=== PATIENT | male | born 1950 | race Caucasian/White ===

== ENCOUNTER 2024-06-14 10:24 | Outpatient (AMB) | payer MEDICARE, SELFPAY ==
--- NOTE | 2024-06-14 10:46 | MHC.OFFVIS ---
Vital Signs 06/14/24 10:47 Height 5 ft 11.5 in Weight 150 lb 5.684 oz BMI 20.7 BP 118/68 Blood Pressure Location Lt brachial Position Sitting Pulse 77 Pulse Source Pulse Oximeter Pulse Oximetry (%) 100 Oxygen Delivery Method Room Air Intake Visit Reasons: PMR/pt aware to call [facility] to fax MR Intake Note: Patient presents today for follow up on PMR, he was last seen by Dr. Kapadia on 02/23/2024 in the [facility]. Allergies No Known Allergies Allergy (Verified 06/14/24 10:54) HPI HPI PMR/pt aware to call [facility] to fax MR: Details: Patient has been feeling well since last visit. He denies GCA symptoms. Right shoulder pain started last week, which occur with certain movements when he abducts above 90 degrees. He denies hip pain. Actemra 10/2021-10/2023. He continues to take calcium and vitamin-D. He also takes aspirin 81 mg daily PFSH Medical History (Updated 06/14/24 @ 11:45 by Tavo Kapadia MD) Vaso vagal episode Encounter for colonoscopy following colon polyp removal Surgical History (Updated 06/14/24 @ 11:04 by Tangela Jang CMA) No pertinent past surgical history Family History (Updated 06/14/24 @ 11:04 by Tangela Jang CMA) Mother Colon cancer Social History (Updated 06/14/24 @ 11:03 by Tangela Jang CMA) Alcohol intake: former Year quit: 2019 Patient Tobacco Use Status: Never used Tobacco Review of Systems Const All systems reviewed & are unremarkable except as noted in HPI and below Physical Exam Vital Signs: Last Vital Signs Pulse 77 06/14/24 10:47 BP 118/68 06/14/24 10:47 Pulse Ox 100 06/14/24 10:47 Oxygen Delivery Method Room Air 06/14/24 10:47 BMI result Body Mass Index 20.7 Const Other: General: Comfortable CVS: RRR Respiratory: clear to auscultation bilaterally. Good respiratory effort Skin: No lesions seen MSK: No tenderness of any joints. No synovitis. No subacromial tenderness. Negative painful arc sign. Positive Gilbert Anton test right side. Assessment & Plan Assessment & Plan (1) Giant cell arteritis: Comment: History of presentation of PMR in 2019 with recurrent relapses on long-term prednisone then developed GCA biopsy-proven and was started on Actemra November 11-2023. He is currently doing well without relapse since being off of Actemra. Code(s): M31.6 - Other giant cell arteritis Category: Medical Plan: Labs ordered for disease monitoring. He was on calcium and vitamin-D while on long-term prednisone. We will order levels this visit. If within normal range, can consider discontinuing supplement. Continue aspirin 81 mg daily Return to clinic 3 months (2) PMR (polymyalgia rheumatica): Comment: See above Code(s): M35.3 - Polymyalgia rheumatica Category: Medical Plan: See above (3) Impingement syndrome of right shoulder: Comment: New onset. We discussed conservative management. Code(s): M75.41 - Impingement syndrome of right shoulder Category: Medical Plan: Exercises printed for patient from [facility] shoulder exercise program. If symptoms progress, he will call office for PT evaluation. Orders: Orders Erythrocyte Sedimentation Rate Today M31.6 - Other giant cell arteritis, M75.41 - Impingement syndrome of right shoulder C Reactive Protein Today M31.6 - Other giant cell arteritis, M75.41 - Impingement syndrome of right shoulder Vitamin D 25-OH Total Today M31.6 - Other giant cell arteritis, M75.41 - Impingement syndrome of right shoulder Calcium Today M31.6 - Other giant cell arteritis, M75.41 - Impingement syndrome of right shoulder Albumin Level Today M31.6 - Other giant cell arteritis, M75.41 - Impingement syndrome of right shoulder Coding Level of Care Code Est Pt Level 4 (70447) Complex EM visit Add On G2211 Diagnoses Giant cell arteritis M31.6 PMR (polymyalgia rheumatica) M35.3 Impingement syndrome of right shoulder M75.41
[2024-06-14 10:47] VITALS: BP 118/68; PULSE 77; O2SAT 100; BMI 20.7
== END 2024-06-14 11:41 | disposition home or self-care (01) ==
PROVIDERS: PCP Internal Medicine; Referring Provider Internal Medicine; Visit Provider Internal Medicine Rheumatology
DX: M31.6 Other giant cell arteritis (principal); M35.3 Polymyalgia rheumatica; M75.41 Impingement syndrome of right shoulder
CPT/HCPCS: 99214; G2211

== ENCOUNTER → 2024-06-14 10:24 | Outpatient (BNVA) | payer MEDICARE, SELFPAY | PROVIDERS: PCP Internal Medicine; Visit Provider Internal Medicine Rheumatology | DX: M31.6 Other giant cell arteritis (principal); M35.3 Polymyalgia rheumatica; M75.41 Impingement syndrome of right shoulder | CPT/HCPCS: 99212 ==

== ENCOUNTER 2024-06-19 08:02 | Outpatient (REF) | payer MEDICARE, SELFPAY ==
[2024-06-19 11:22] LABS: Albumin Level 4.3 g/dL (3.5-5.0); C Reactive Protein 0.44 mg/dL (< or = 0.50); Calcium 9.9 mg/dL (8.4-10.2)
[2024-06-19 11:27] LABS: Vitamin D 25-OH Total 34.5 ng/mL (>30)
[2024-06-19 11:36] LABS: Erythrocyte Sedimentation Rate 16 MM/HR (0-15)
== END 2024-06-19 08:03 | disposition home or self-care (01) ==
LOC: HO.10HDL 08:02
PROVIDERS: Visit Provider Internal Medicine Rheumatology
DX: M75.41 Impingement syndrome of right shoulder (principal); M31.6 Other giant cell arteritis
CPT/HCPCS: 36415; 82040; 82306; 82310; 85652; 86140

== ENCOUNTER 2024-10-10 13:52 | Outpatient (AMB) | payer MEDICARE, SELFPAY ==
--- NOTE | 2024-10-10 13:56 | A.OFFVIS_ITS ---
Vital Signs 10/10/24 13:57 Height 5 ft 11.5 in Weight 150 lb 9.211 oz BMI 20.7 BP 120/80 Blood Pressure Location Lt brachial Position Sitting Pulse 83 Pulse Source Pulse Oximeter Pulse Oximetry (%) 98 Oxygen Delivery Method Room Air Intake Visit Reasons: follow up Intake Note: Patient presents today for follow up on PMR, Accompanied by: Self / Same As Patient Allergies No Known Allergies Allergy (Verified 10/10/24 13:59) HPI HPI follow up: Details: Increase pain in arms when sleeps on sides with increase pain. Pain resolves with time in the morning. Pain in right shoulder with lifting heavy objects. He has not been compliant with exercises from [facility] program. Denies headache, jaw pain, vision changes. He has discomfort in right thigh when he flexes his knee (putting on shoe). Denies neck pain. He has uncomfortable feeling after being in car for an hour and half. Walking resolves the discomfort. [facility] Medical History Vaso vagal episode Encounter for colonoscopy following colon polyp removal Surgical History No pertinent past surgical history Family History Mother Colon cancer Social History Alcohol intake: former Year quit: 2019 Patient Tobacco Use Status: Never used Tobacco Physical Exam Vital Signs: Last Vital Signs Pulse 83 10/10/24 13:57 BP 120/80 10/10/24 13:57 Pulse Ox 98 10/10/24 13:57 Oxygen Delivery Method Room Air 10/10/24 13:57 BMI result Body Mass Index 20.7 Const Other: General: Comfortable CVS: RRR Respiratory: clear to auscultation bilaterally. Good respiratory effort Skin: No lesions seen Vascular: +2 radial pulses bilateral MSK: No tenderness of any joints. No synovitis. No subacromial tenderness. Negative painful arc sign. Negative Gilbert Anton test right side. He has localized tenderness long head of biceps attachment. He has pain in right shoulder with internal rotation. Normal range of motion of upper extremity and lower extremities. Assessment & Plan Assessment & Plan (1) Giant cell arteritis: Comment: In clinical remission. Labs from June 2024 revealed slight elevation in ESR. If he continues to have elevation in ESR, I have to suspect that there is a possibility of right shoulder pain due to PMR activity. Rheumatology History of presentation of PMR in 2019 with recurrent relapses on long-term prednisone then developed GCA biopsy-proven and was started on Actemra November 11. He is currently doing well without relapse since being off of Actemra. Code(s): M31.6 - Other giant cell arteritis Category: Medical Plan: Repeat inflammatory markers this visit Return to clinic in 3 months (2) Right rotator cuff tendonitis: Comment: Mild suspected Code(s): M75.81 - Other shoulder lesions, right shoulder Category: Medical Plan: PT ordered (3) Biceps tendinitis of right shoulder: Comment: Suspected Code(s): M75.21 - Bicipital tendinitis, right shoulder Category: Medical Plan: PT ordered Orders: Orders C Reactive Protein Today M31.6 - Other giant cell arteritis Erythrocyte Sedimentation Rate Today M31.6 - Other giant cell arteritis PT Evaluation and Treatment Today M75.21 - Bicipital tendinitis, right shoulder, M75.81 - Other shoulder lesions, right shoulder Coding Level of Care Code Est Pt Level 4 (74113) Complex EM visit Add On G2211 Diagnoses Giant cell arteritis M31.6 Right rotator cuff tendonitis M75.81 Biceps tendinitis of right shoulder M75.21
[2024-10-10 13:57] VITALS: BP 120/80; PULSE 83; O2SAT 98; BMI 20.7
--- OUTSIDE RECORDS SUMMARY | 2024-10-10 16:16 | XMS_ITS | Patient Health Record ---
Author Organization [facility] Address [address] [facility] [address] [facility] [place] [address] Care Team Providers Care Virtualization Engineer Name Role Phone Siddhartha Jasso Primary Care Provider Brandy Moran Unavailable [phone] Allergies Allergen (clinical drug ingredient) Drug/Non Drug Allergy documented on EMR Reaction Allergy Type Onset Date Status Penicillin INEFFECTIVE Drug Allergy Acti ve Reason For Referral No Information Medications Medication SIG (Take, Route, Frequency, Duration) Notes Start Date End Date Status Sulfamethoxazole Not -Taking Aspirin 81 MG 1 tablet Orally Once a day for 30 day(s) Active Actemra 162 MG/0.9ML 0.9 mL Subcutaneous for 30 day(s) Active Calcium Active predniSONE Active Omeprazole 20 MG as directed Orally Not-Taking Multivitamin Active Turmeric 500 MG as directed Orally Active Social History Tobacco Use: Social History Observation Description Date Details (start date - stop date) Never Smoker NA - NA Tobacco Use/Smoking Question Answer Notes Are you a: nonsmoker Additional Findings: Tobacco Non-User Current no n-smoker Alcohol Screen Question Answer Notes Did you have a drink containing alcohol in the p ast year? No Points 0 Interpretation Negative Tobacco use other than smoking: Question Answer Notes Are you an other tobacco user? 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 Plan Of Treatment Pending Test Test Name Order Date X ray : Foot, left 3V 01/27/2018 X ray : Foot, left 3V 04/20/2022 X ray : Foot, right 3V 02/27/2019 Insurance Providers Payer Name Payer Address Payer Phone Subscriber Number Group Number Insured Name Patient Relationship to Insured Coverage Start Date Coverage End Date Blue[employer] 65 Medicare Preferred [address] [place] [address] [id number] Walker Kapoor Self - patient is the insured Medical (General) History Medical History History ICD Code Measles Mumps Chicken pox Pericarditis Takes Amoxicillin for dental appts Polymyalgia rheumatica Giant Cell Arteritis Surgical History Surgery Date(Month/Year)
--- OUTSIDE RECORDS SUMMARY | 2024-10-10 16:16 | XMS_ITS | Continuity of Care Document ---
Author Organization [facility] Address [address] [place] [address]- Care Team Providers Care Dishtank Operator Name Role Phone Louisa MORTON, Siddhartha Soto Primary Care Physician Encounter [facility] Date(s): 09/04/24 - 09/11/24 [facility] [address] [place] [address]- Encounter Diagnosis Stage 2 chronic kidney disease(Discharge Diagnosis) - 09/04/24 Polymyalgia rheumatica(Discharge Diagnosis) - 09/04/24 Physical exam(Discharge Diagnosis) - 09/04/24 Elevated liver enzymes(Discharge Diagnosis) - 09/04/24 Cerumen impaction(Discharge Diagnosis) - 09/04/24 Inguinal hernia(Discharge Diagnosis) - 09/04/24 Attending Physician: Siddhartha Jasso MD Encounter Type: Office Visit Allergies, Adverse Reactions, Alerts No Known Allergies Immunizations Given and Recorded Vaccine Date Status Refusal Reason tetanus/diphtheria/pertussis, acel(Tdap) 09/04/24 Given tetanus/diphtheria/pertussis, acel(Tdap) 08/01/08 Recorded pneumococcal 20-valent conjugate vaccine 06/20/24 Recorded SARS-CoV-2(COVID-19)mRNA-LNP vac([id number]) 05/15/24 Recorded SARS-CoV-2(COVID-19)mRNA-LNP vac([id number]) 09/30/23 Recorded SARS-CoV-2(COVID-19)mRNA-LNP vac(cyg301) 04/25/23 Recorded zoster vaccine, inactivated 04/30/24 Recorded zoster vaccine, inactivated 12/28/23 Recorded zoster vaccine, inactivated 07/15/20 Recorded influenza virus vaccine, inactivated 04/05/24 James rded influenza virus vaccine, inactivated 05/03/23 James rded influenza virus vaccine, inactivated 05/11/22 James rded influenza virus vaccine, inactivated 07/16/21 James rded influenza virus vaccine, inactivated 04/30/20 James rded influenza virus vaccine, inactivated 04/30/19 Give n influenza virus vaccine, inactivated 07/07/17 James rded influenza virus vaccine, inactivated 05/28/16 James rded influenza virus vaccine, inactivated 04/29/15 James rded RSV vaccine, preF A-preF B, recombinant 05/26/23 R ecorded [id number] 12y+ bivalent booster vax 11/19/22 Recorded [id number] 12y+ bivalent booster vax 05/17/22 Recorded SARS-CoV-2 mRNA ([id number]) vax 10/24/21 Recorded SARS-CoV-2 (COVID-19) mRNA BNT-162b2 vac 05/20/21 Recorded SARS-CoV-2 (COVID-19) mRNA BNT-162b2 vac 09/04/20 Recorded SARS-CoV-2 (COVID-19) mRNA BNT-162b2 vac 1 08/14/20 Recorded Influenza Virus Vaccine (oldterm) 04/24/20 Recorde d pneumococcal 23-valent vaccine 2 06/06/19 Given pneumococcal 13-valent vaccine 02/17/16 Recorded 1Result Comment: [facility] 2Result Comment: [facility][NOTE 3]-[id number] Medications amoxicillin 500 mg oral tablet See Instructions, 4 tablet By Mouth 1 hour before dental appointment., # 4 tablet, 1 Refills, Maintenance, 05/11/22 2:19:00 PM EDT, [facility]/pharmacy #[id number], Partial fill upon patient request if the prescription is for a schedule II opioid drug., 180.34, cm, 09/14/21 14:21:00 EST, Height, 64.9, kg, 09/14/21 14:21:00 EST, Dry Weight Start Date: 05/11/22 Status: Ordered Quantity: 4.0 Unit: tablet Repeat number: 2 aspirin 81 mg oral capsule 1 capsule = 81 mg, By Mouth, Daily, do not exceed 48 capsules in 24 hours, # 90 capsule, 0 Refills,Maintenance, 09/04/24 8:24:00 AM EST, Capsule, Partial fill upon patient request if the prescriptionis for a schedule II opioid drug. Start Date: 09/04/24 Status: Ordered Quantity: 90.0 Unit: capsule Repeat number: 1 aspirin 81 mg oral delayed release tablet 81 mg, 1, tablet, By Mouth, Daily, # 90 tablet, Refills 3, Tot. Refills 3, Maintenance, 09/04/24 8:44:00 AM EST, Route to Pharmacy Electronically, [facility]/pharmacy #[id number], Partial fill upon patient requestif the prescription is for a schedule II opioid drug., 180.34, cm, 09/04/24 8:24:00 EST, Height Start Date: 09/04/24 Status: Ordered Quantity: 90.0 Unit: tablet Repeat number: 4 [facility] 600-VIT D3 800 TAB [facility] CAL[facility] 600-VIT D3 800 TAB, 0 Refills, Maintenance, 08/28/19 11:41:00 AM EST Start Date: 08/28/19 Status: Ordered Repeat number: 1 Daily Vicky oral tablet 1 tablet, By Mouth, Daily, # 90 tablet, 0 Refills, [id number], 90, TAKE 1 TABLET BY MOUTH EVERY DAY, 180.34, cm, 09/14/21 14:21:00 EST, Height, 64.9, kg, 09/14/21 14:21:00 EST, Dry Weight Start Date: 03/08/22 Status: Ordered Quantity: 90.0 Unit: tablet Repeat number: 1 Problem List Condition Confirmation Course Effective Dates Status Health St atus Informant Achilles tendinitis Confirmed Active Bilateral back pain Confirmed Active Chest pain Confirmed Active Elevated liver enzymes Confirmed Active History of mitral valve prolapse Confirmed Active Internal hemorrhoids Confirmed Active Fear of needles Confirmed Active Polymyalgia rheumatica Confirmed Active Colon polyps Confirmed Active Tubular adenoma of colon Confirmed Active Ventricular ectopy Confirmed Active Diagnosis Diagnosis Type Effective Dates Health Status Clinical Service Informant Stage 2 chronic kidney disease Discharge Diagnosis 09/04/24 Polymyalgia rheumatica Discharge Diagnosis 09/04/24 Physical exam Discharge Diagnosis 09/04/24 Elevated liver enzymes Discharge Diagnosis 09/04/24 Cerumen impaction Discharge Diagnosis 09/04/24 Inguinal hernia Discharge Diagnosis 09/04/24 Vital Signs Most recent to oldest [Reference Range]: 1 2 Height 180.34 cm (09/04/24 8:55 AM) 180.34 cm (09/04/24 8:24 AM) Weight 68.0 kg (09/04/24 8:24 AM) Oxygen Saturation [94-100 %] 96 % (09/04/24 8:24 AM) Pulse Rate [55-90 bpm] 70 bpm (09/04/24 8:24 AM) Body Mass Index [18.5-24.99 kg/m2] 20.91 kg/m2 (09/04/24 8:24 AM) Blood Pressure [90-138/55-84 mm Hg] 116/ 79mm Hg (09/04/24 8:55 AM) 111/71mm Hg (09/04/24 8:24 AM) Temperature [96.8-100.4 DegF] 98.4 DegF (09/04/24 8:24 AM) Blood pressure sites Arm, right (09/04/24 8:55 AM) Arm, left (09/04/24 8:24 AM) Temperature Route Oral (09/04/24 8:24 AM) Weight Obtained Via Standing scale (09/04/24 8:24 AM) Social History Social History Type Response Smoking Status Never (less than 100 in lifetime) entered on: 02/26/19 Sex Sex Representation Male (finding) Note * Jeff Weiss: PERFORM Event Display: Patient Education/Instruction Authored Date: Ambulatory Adult Visit Summary [facility] Adult [facility] Kellie [place] [address] [id number] Name: BLANCHE VUONG : 1950?? Visit: Ambulatory Visit Instructions ?? Your Care Team Primary Care Provider Siddhartha Jasso MD? This Visit Provider Siddhartha Jasso MD What to do next Scheduled Follow-Up Appointments Tuesday 8:30 AM EST ?? With: Siddhartha Jasso MD Where: [facility] [place] [facility] [address] [place] [address]- Status: Pending Future Orders CBC - Routine, Once, 10/28/23 12:51:00 EDT, Order for Today, [facility], Blood?? Lipid Panel - Routine, Once, 10/28/23 12:51:00 EDT, Order for Today, [facility], Blood?? Comprehensive Metabolic Panel - Routine, Once, 10/28/23 12:51:00 EDT, Order for Today, [facility], Blood?? CBC - Routine, Once, 02/24/24 7:25:00 EDT, Order for Today, [facility], Blood?? Comprehensive Metabolic Panel - Routine, Once, 02/24/24 7:25:00 EDT, Order for Today, [facility], Blood?? Lipid Panel - Routine, Once, 02/24/24 7:25:00 EDT, Order for Today, [facility], Blood?? Vitamin D 25 Hydroxy Level - Routine, Once, 02/24/24 7:26:00 EDT, Order for Today, [facility], Blood?? Medications The list below reflects the information in our records and provided by you today along with any changes made during this visit. Please continue your medications until treatment is completed or stopped by your provider. If this is different from the information you have or there are other questions,please contact the prescribing provider. What How Much When Instructions Unchanged Amoxicillin (amoxicillin 500 mg oral tablet) See instructions 4 tablet By Mouth 1 hour before dental appointment. ?? Unchanged Miscellaneous Rx ([facility] CAL[facility] 600-VIT D3 800 TAB) Unchanged Multivitamin (Daily Vicky oral tablet) 1 tab(s) Oral Daily Unchanged nirmatrelvir-ritonavir (Paxlovid 150 mg-100 mg oral tablet) See instructions 300mg nirmatrelvir (two 150mg tablets) with 100mg ritonavir (one tablet). All 3 tablets taken together twice daily By Mouth for 5 days, with or without food ?? Unchanged PredniSONE (predniSONE 1 mg oral tablet) 4 tab(s) Oral Daily TITRATING DOWN ?? Unchanged turmeric (turmeric 500 mg oral capsule) 1 capsule Oral Daily Medications and Immunizations Administered Medications Given During Visit No medications given during this visit.?? Allergies (NKA means No Known Allergies) NKA Common Emergency Awareness Tips IS IT A STROKE? Act FAST and Check for these signs: FACE Does the face look uneven? ARM Does one arm drift down? SPEECH Does their speech sound strange? TIME Call at any sign of stroke ?? Heart Attack Signs Chest discomfort: Most heart attacks involve discomfort in the center of the chest and lasts more than a few minutes, or goes away and comes back. It can feel like uncomfortable pressure, squeezing, fullness or pain. Discomfort in upper body: Symptoms can include pain or discomfort in one or both arms, back, neck, jaw or stomach. Shortness of breath: With or without discomfort. Other signs: Breaking out in a cold sweat, nausea, or lightheaded. Remember, MINUTES DO MATTER. If you experience any of these heart attack warning signs, call to get immediate medical attention! ?? Smoking can increase your chances of developing chronic health problems and can cause harmful effects to other family members in your house. If you smoke, you are strongly encouraged to quit. Please call [facility] [employer] [facility] at [phone] or 3-410-209-[employer] ([phone]) or log in to [email or web address] for referrals to smoking cessation programs. ?? The National Suicide Prevention Hotline is available 14/02 if you or someone you know needs to find a reason to keep living. By calling 6-803-690-[employer] (0737) you'll be connected to a skilled, trained counselor at a crisis center in your area. [facility] Portal You can view and manage your care through the patient portal or by using a health care dimitrios of your choosing. [employer] is a website that allows you to securely view your medical information including your hospital discharge summary, office visit summaries, medications and follow-up visits. You can also request appointments, renew medications, and request access to your medical information using a health care dimitrios of your choosing, or just ask a question. You can enroll at [email or web address] or register during your next office visit. [facility], in keeping with [facility] guidance, no longer requires face masks for staff, patientsor visitors in most situations. Similiar to time spent indoors at other locations, there is the chance that you were exposed to repiratory viruses during your time with us (such as flu or COVID-19). If you develop symptoms concerning for a viral respiratory infection, please seek testing (and treatment if indicated) from your medical provider or home test kit. ?? Disclaimer: The information provided is of a general nature and is intended to be used in conjunction with the recommendations and advice of your health care practitioner. Every effort has been made to ensure that the information provided is accurate and complete at the time it is provided to you however, as your needs change, or, as new information becomes available, different or additional instructions may be required. ?? If you have questions, please consult with your primary care provider or pharmacist, as appropriate. This information is not intended to serve as substitution for assessment and evaluation by a qualified health care provider. If you do not have a primary care provider, you may find a [facility] provider by calling [facility] at [phone]. Patient Care team information Care Team Personnel Name: Siddhartha Jasso MD Position: [facility] Physician - Primary Care Member Role: PCP Address: [address] [place] [id number] Telecom: Care Team Related Persons Name: KISHAN RAIN Insurance Providers Guarantor name: BLANCHE YEVGENIY Health Plan Information #: 1 Payer: NA Member Number: [id number] Policy Number: NA Group Number: [employer] Health Plan Information #: 2 Payer: NA Member Number: [id number] Policy Number: NA Group Number: [id number]
== END 2024-10-10 14:29 | disposition home or self-care (01) ==
LOC: HO.RHES 13:53
PROVIDERS: PCP Internal Medicine; Visit Provider Internal Medicine Rheumatology
DX: M31.6 Other giant cell arteritis (principal); M75.81 Other shoulder lesions, right shoulder; M75.21 Bicipital tendinitis, right shoulder
CPT/HCPCS: 99214; G2211

== ENCOUNTER 2024-10-10 13:52 | Outpatient (REF) | payer MEDICARE, SELFPAY ==
[2024-10-10 18:37] LABS: C Reactive Protein 1.14 mg/dL (< or = 0.50)
[2024-10-10 19:18] LABS: Erythrocyte Sedimentation Rate 23 MM/HR (0-15)
== END 2024-10-10 13:53 | disposition home or self-care (01) ==
LOC: HO.HKASLDS 13:52
PROVIDERS: PCP Internal Medicine; Visit Provider Internal Medicine Rheumatology
DX: M31.6 Other giant cell arteritis (principal)
CPT/HCPCS: 36415; 85652; 86140; 99212

== ENCOUNTER 2024-10-17 15:09 | Outpatient (REF) | payer MEDICARE, SELFPAY ==
[2024-10-17 18:28] LABS: C Reactive Protein 0.43 mg/dL (< or = 0.50)
[2024-10-17 19:00] LABS: Erythrocyte Sedimentation Rate 13 MM/HR (0-15)
== END 2024-10-17 15:10 | disposition home or self-care (01) ==
LOC: HO.HKASLDS 15:09
PROVIDERS: Visit Provider Internal Medicine Rheumatology
DX: M31.6 Other giant cell arteritis (principal); M35.3 Polymyalgia rheumatica
CPT/HCPCS: 36415; 85652; 86140

== ENCOUNTER 2025-01-29 07:59 | Outpatient (REF) | payer MEDICARE, SELFPAY | END 2025-01-29 08:00 | disposition home or self-care (01) | LOC: HO.HKASLDS 07:59 | PROVIDERS: PCP Internal Medicine; Visit Provider Internal Medicine Rheumatology | DX: M35.3 Polymyalgia rheumatica (principal); M31.6 Other giant cell arteritis; Z79.52 Long term (current) use of systemic steroids; Z79.899 Other long term (current) drug therapy | CPT/HCPCS: 36415; 85652; 86140; 99212 ==

== ENCOUNTER 2025-01-29 07:59 | Outpatient (AMB) | payer MEDICARE, SELFPAY ==
--- NOTE | 2025-01-29 08:01 | A.OFFVIS_ITS ---
Vital Signs 01/29/25 08:02 Height 5 ft 11.5 in Weight 146 lb BMI 20.1 BP 100/80 Blood Pressure Location Rt brachial Position Sitting Pulse 75 Pulse Source Pulse Oximeter Pulse Oximetry (%) 100 Oxygen Delivery Method Room Air Intake Visit Reasons: 3 Months Intake Note: Patient presents today for follow up on PMR. Allergies No Known Allergies Allergy (Verified 01/29/25 08:06) HPI HPI 3 Months: Details: After being on prednisone 5mg qd right shoulder pain and chest discomfort (occurs when driving for long periods of time or when sleeps on right side in position) resolved. left sided neck pain with radiating pain to head when he does not sleep on his back. It goes away. right sided lower back pain started a few weeks ago occurs at night. Resolves in the morning [facility] Medical History Vaso vagal episode Encounter for colonoscopy following colon polyp removal Surgical History No pertinent past surgical history Family History Mother Colon cancer Social History Alcohol intake: former Year quit: 2019 Patient Tobacco Use Status: Never used Tobacco Physical Exam Vital Signs: Last Vital Signs Pulse 75 01/29/25 08:02 BP 100/80 01/29/25 08:02 Pulse Ox 100 01/29/25 08:02 Oxygen Delivery Method Room Air 01/29/25 08:02 BMI result Body Mass Index 20.1 Const Other: General: Comfortable CVS: RRR Respiratory: clear to auscultation bilaterally. Good respiratory effort Skin: No lesions seen Vascular: +2 radial pulses bilateral MSK: No tenderness of any joints. No synovitis. No subacromial tenderness. Normal range of motion of upper extremities and lower extremities. No spinous process tenderness of cervical spine or lumbar spine. No paraspinal muscle tenderness. Normal range of motion of cervical spine. Normal lumbar flexion. Assessment & Plan Assessment & Plan (1) Giant cell arteritis: Comment: Relapse disease in September with PMR presenting with right shoulder pain and mildly elevated inflammatory markers responding to prednisone 5 mg daily. We discussed the possibility of using methotrexate as spared sparing agent if he relapses while prednisone is being tapered slowly. Discussed side effects, benefits and drug monitoring on methotrexate. Rheumatology History of presentation of PMR in 2019 with recurrent relapses on long-term prednisone then developed GCA biopsy-proven and was started on Actemra November 11. He is currently doing well without relapse since being off of Actemra. Code(s): M31.6 - Other giant cell arteritis Category: Medical Plan: Repeat inflammatory markers this visit. If inflammatory markers remain normal, I will reduce prednisone 1 mg every month Apply heat to neck as needed He will try to schedule physical therapy for upper body strengthening when his schedule becomes less busy Return to clinic in 3 months Orders: Orders Erythrocyte Sedimentation Rate Today M31.6 - Other giant cell arteritis, M35.3 - Polymyalgia rheumatica, Z79.899 - Other middle or intermediate school principal (current) drug therapy C Reactive Protein Today M31.6 - Other giant cell arteritis, M35.3 - Polymyalgia rheumatica, Z79.899 - Other penitentiary (current) drug therapy Coding Level of Care Code Est Pt Level 4 (21599) Complex EM visit Add On G2211 Diagnoses Giant cell arteritis M31.6
--- OUTSIDE RECORDS SUMMARY | 2025-01-29 08:01 | XMS_ITS | Patient Health Record ---
Author Organization [facility] Address [address] [place] [address] Care Team Providers Care Watch Guard Gate Name Role Phone Siddhartha Jasso Primary Care Provider Brandy Moran Unavailable [phone] Allergies Allergen (clinical drug ingredient) Drug/Non Drug Allergy documented on EMR Reaction Allergy Type Onset Date Status Penicillin INEFFECTIVE Drug Allergy Acti ve Reason For Referral No Information Medications Medication SIG (Take, Route, Frequency, Duration) Notes Start Date End Date Status Sulfamethoxazole Not -Taking Aspirin 81 MG 1 tablet Orally Once a day; Duration: 30 day(s) Active Actemra 162 MG/0.9ML 0.9 mL Subcutaneous ; Duration: 30 day(s) Active Calcium Active predniSONE Active [...] Problem Status W/U Status Risk Notes Problem Plantar nerve lesion ([id number]) Neuroma of second interspace of left foot [...] End Date [employer] 65 Medicare Preferred [address] [place] [address] [id number] Walker Kapoor Self - patient is the insured Medical (General) History Medical History History ICD Code Measles Mumps Chicken pox Pericarditis Takes Amoxicillin for dental appts Polymyalgia rheumatica Giant Cell Arteritis Surgical History Surgery Date(Month/Year)
[2025-01-29 08:02] VITALS: BP 100/80; PULSE 75; O2SAT 100; BMI 20.1
== END 2025-01-29 08:34 | disposition home or self-care (01) ==
LOC: HO.RHES 07:59
PROVIDERS: PCP Internal Medicine; Visit Provider Internal Medicine Rheumatology
DX: M31.6 Other giant cell arteritis (principal)
CPT/HCPCS: 99214; G2211

== ENCOUNTER 2025-05-15 08:18 | Outpatient (REF) | payer MEDICARE, SELFPAY | END 2025-05-15 08:19 | disposition home or self-care (01) | LOC: HO.HKASLDS 08:18 | PROVIDERS: PCP Internal Medicine; Visit Provider Internal Medicine Rheumatology | DX: M35.3 Polymyalgia rheumatica (principal); M31.6 Other giant cell arteritis; Z79.899 Other long term (current) drug therapy | CPT/HCPCS: 36415; 85652; 86140; 99212 ==